=== PATIENT | male | born 1980 | race Asian ===

== ENCOUNTER 2022-01-19 07:27 | Emergency (ER) | payer OTHER ==
[~2022-01-19] VITALS: Ht 167.6 cm; Wt 56.7 kg
[2022-01-19 07:38] VITALS: BP 137/86
[2022-01-19] MEDS ORDERED: GUAI1TBM19 PO (08:28)
[2022-01-19] MEDS ORDERED: ONDA4TAB11 PO (08:28)
[2022-01-19] MEDS ORDERED: BENZ-13 PO (08:28)
[2022-01-19] MEDS ORDERED: DEXAMETHASONE 4 MG TABLET ONE (08:28)
[2022-01-19] MEDS ORDERED: ONDANSETRON 4 MG TAB.RAPDIS ONE (08:28)
[2022-01-19] MEDS ORDERED: KETOROLAC TROMETHAMINE INJ 30 MG/ML VIAL ONE (08:28)
[2022-01-19] MEDS ORDERED: ONDANSETRON 4 MG TAB.RAPDIS PO ONE (08:30)
[2022-01-19] MEDS ORDERED: DEXAMETHASONE SOLN 5 MG/5 ML UDC PO ONE (08:30)
[2022-01-19] MEDS ORDERED: KETOROLAC TROMETHAMINE INJ 30 MG/ML VIAL IM ONE (08:30)
--- NOTE | 2022-01-19 09:56 | NUR ---
covid positive. ermd aware
[2022-01-19] MEDS ORDERED: Paxlovid PO (10:00)
--- NOTE | 2022-01-19 10:02 | NUR ---
Patient discharged to home in stable condition. Written and verbal after care instructions given. Patient verbalizes understanding of instruction.
== END 2022-01-19 10:03 | disposition home or self-care (01) ==
LOC: ER 07:41
DX: U07.1 COVID-19 (principal); G80.9 Cerebral palsy, unspecified
CPT/HCPCS: 87426; 87804; 96372; 99283; C9803; J1885; J8540; Q0162